=== PATIENT | male | born 1965 | race Two or more races ===

== ENCOUNTER 2023-04-08 14:07 | Outpatient (CLI) | payer OTHER | END 2023-04-08 14:17 | disposition home or self-care (01) | LOC: RAD 14:07 | DX: Z01.89 Encounter for other specified special examinations (principal); J40 Bronchitis, not specified as acute or chronic ==

== ENCOUNTER 2023-04-14 07:23 | Outpatient (CLI) | payer OTHER | END 2023-04-14 07:39 | disposition home or self-care (01) | LOC: RAD 07:23 | DX: M54.2 Cervicalgia (principal); M54.59 Other low back pain; M54.6 Pain in thoracic spine; M54.18 Radiculopathy, sacral and sacrococcygeal region ==